=== PATIENT | female | born 1955 | race Caucasian/White ===

== ENCOUNTER 2022-05-18 13:19 | Outpatient (CLI) | payer MEDICARE, OTHER, SELFPAY | END 2022-05-18 13:20 | disposition home or self-care (01) | LOC: RAD 13:44 | PROVIDERS: PCP Family Medicine | DX: I48.91 Unspecified atrial fibrillation (principal); I95.9 Hypotension, unspecified; C54.1 Malignant neoplasm of endometrium | CPT/HCPCS: 93306 ==

== ENCOUNTER 2022-07-20 10:06 | Outpatient (CLI) | payer MEDICARE, OTHER, SELFPAY ==
--- NOTE | 2022-07-20 11:00 | CRLHL7_ITS ---
For Patients: As a result of the 21st Century Cures Act, medical imaging exams and procedure reports are released immediately into your electronic medical record. You may view this report before your referring provider. If you have questions, please contact your health care provider. Indication: Endometrial Carcinoma Technique: Postcontrast CT chest, abdomen and pelvis. 149 cc Isovue 370 intravenous contrast. Please note that all CT scans at this facility use dose modulation, iterative reconstruction, and/or weight-based dosing when appropriate to reduce radiation dose to as low as reasonably achievable. Comparison: 04/24/2022 Findings: In the chest, tiny pleural-based nodules in the right middle lobe, 4/43, are unchanged. No pleural effusion or infiltrate. Small hiatal hernia. Upper limits of normal mediastinal lymph nodes. Normal axillary lymph nodes. Visualized thyroid normal. No fracture. No pneumothorax or pulmonary edema. In the abdomen, increased soft tissue nodules within the mesenteric fat. For example, there is a 1.8 centimeter nodule within the right upper quadrant mesenteric fat, 2/138, previously measuring 1.2 cm. There are new nodules within the central mesenteric fat measuring up to 1.7 cm. Innumerable nodules are present within the central mesenteric fat. There is trace intra-abdominal ascites with congestion of the mesenteric venous structures. No abdominal wall hernia or bowel obstruction. Focal fat deposition within the liver adjacent to the falciform ligament. No splenomegaly. Adrenal glands normal. No hydronephrosis. Pancreas normal. Gallbladder absent. No biliary obstruction. Mildly prominent retroperitoneal lymph nodes are again noted which measure up to 1.3 cm. In the pelvis, stranding of the mesenteric fat noted. Bladder normal. Status post MICHAEL/BSO. No bowel obstruction. Mildly prominent pelvic sidewall lymph nodes are present. There is slight increased size of a left pelvic sidewall lymph node measuring 1.2 cm, 2/208, previously measuring 9 millimeters. No free air. No fracture. Degenerative changes. Impression: Progression of metastatic disease within the abdomen and pelvis with increased size and number of numerous lymph nodes throughout the mesenteric fat, retroperitoneum and pelvis. Increased size of soft tissue nodule in the right upper quadrant mesenteric fat. New mild ascites and congestion of mesenteric venous structures. Please note that all CT scans at this facility use dose modulation, iterative reconstruction, and/or weight-based dosing when appropriate to reduce radiation dose to as low as reasonably achievable. Dictated by Enrike Brown MD @ 07/21/2022 11:06:34 AM (Electronically Signed)
== END 2022-07-20 10:07 | disposition home or self-care (01) ==
LOC: CT 10:06
PROVIDERS: PCP Family Medicine; Visit Provider Nurse Practitioner Obstetrics & Gynecology
DX: C54.1 Malignant neoplasm of endometrium (principal); R59.9 Enlarged lymph nodes, unspecified
CPT/HCPCS: 71260; 74177; Q9967

== ENCOUNTER 2022-07-29 13:19 | Emergency (ER) | payer MEDICARE, OTHER, SELFPAY ==
[2022-07-29 13:33] VITALS: BP 112/79; PULSE 94; RESP 16; TEMP 35.9; O2SAT 96; BMI 47.6
[2022-07-29] MEDS: 0.9 % SODIUM CHLORIDE 1000 ml 1,000 ML IV (15:00)
[2022-07-29] MEDS: ONDANSETRON 2 MG/ML inj 4 MG IVP (15:01)
--- NOTE | 2022-07-29 15:04 | CRLHL7_ITS ---
For Patients: As a result of the Cures Act, medical imaging exams and procedure reports are released immediately into your electronic medical record. You may view this report before your referring provider. If you have questions, please contact your health care provider. Indication: NO BM FOR 5-6 DAYS. ILEUS? SBO? Technique: Abdomen 3 view. Comparison: None. Findings: No free air seen on upright imaging. Mild-moderate fecal retention throughout the colon. There is a nonobstructed bowel gas pattern. No acute osseous abnormality. Impression: Nonobstructed bowel gas pattern with mild-moderate fecal retention. Dictated by Spencer Hartley MD @ 07/29/2022 4:11:20 PM (Electronically Signed)
--- NOTE | 2022-07-29 15:30 | ED_ITS ---
HPI - General Adult General Chief complaint: Constipation <Enrike Gutierrez MD - Last Filed: 07/30/22 07:50> Stated complaint: Constipated <Enrike Gutierrez MD - Last Filed: 07/30/22 07:50> Time Seen by Provider: 07/29/22 13:32 <Enrike Gutierrez MD - Last Filed: 07/30/22 07:50> History of Present Illness HPI narrative: 67-year-old woman presenting to the emergency department with her supportive spouse with concern of constipation. Complicating history of endometrial cancer with metastases. As been receiving chemotherapy and experiences intermittent bouts of constipation and would not get excited about 2 or 3 days perhaps without a bowel movement. Would normally use prunes and Dulcolax or maybe senna and this would be successful. Has only had a small bowel movement 6 days ago which would be rather unusual. Admittedly had been only with intermittent stooling maybe a week preceding that as well. This bowel movement was small but soft. She is experiencing increasing abdominal cramping. Some dry heaves. Was seen in clinic yesterday diagnosed with constipation possible ileus. Did receive x-ray imaging at that time. CT imaging of the abdomen and pelvis done here on 07/20 unfortunately did show progression of metastatic disease. Congestion was noted of the vascular structures. Constipation is thought possibly related to chemotherapy or to being hypothyroid. She has not been taking opiates. Has not had any fever. No hematemesis. Tried a fleets enema last night and today without results as well as senna. She says over the last few days just simply can not maintain much fluid in. Can not take much more than 8 oz a day feeling too bloated/just can not bring herself to do it. She knew this might get her into trouble. Past Medical History 1. 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 History of pulmonary embolism, diagnosed October 2021 3. History of paroxysmal atrial fibrillation 4. Longstanding history of morbid obesity, BMI greater than 50 5. Osteoarthritis 6. Valgus deformity of knees 7. Hiatal hernia 8. Obstructive sleep apnea, on CPAP 9. Dermatographia some 10. History external hemorrhoids Past Surgical History 1. Hysteroscopy and D&C demonstrating serous carcinoma of the endometrium, [place] 2020 2. Diagnostic laparoscopy and evacuation of ascites only demonstrating diffuse carcinomatosis involving the peritoneum, omentum, sigmoid colon, small bowel. 3. Robotic assisted TLH, BSO, SANDRA, omentectomy, cystoscopy. Uterus with serous carcinoma of the endometrium, myometrial invasion 20%. Cervical involvement invasion without invasion into stroma. Uterine serosal involvement. Bilateral ovaries and fallopian tubes involved with serous carcinoma. Omentum with serous carcinoma. Right pelvic peritoneum biopsy with metastatic service carcinoma. Washing was positive. Optimal debulking. 4. Remote history of appendectomy 5. Status post bunionectomy 6. Status post cholecystectomy 7. Status post right total knee arthroplasty 8. Status post right rotator cuff repair Family History Father had thyroid cancer. Mother had congestive heart failure. Paternal uncle had liver cancer. Paternal uncle had bladder cancer. Paternal grandmother had atherosclerosis. Paternal aunt had endometrial cancer. Maternal cousin had breast cancer. Maternal cousin had breast cancer. Paternal cousin had leukemia, melanoma. Paternal cousin had colon cancer. Social History . Lives with . Retired. Former artist including sculpture, painting, costumes. Formally lived in [facility] for [address] Hdez is her primary care physician. Dr. Rao is her gynecologic oncologist. She is awaiting a 2nd opinion at [facility] in [place]. Designates her , Mark Anthony, as her power of block paver for health should that be required. Requests full resuscitation in the event of cardiopulmonary demise at this time. Former smoker. Half pack per day for 5 years. 2.5 pack-year history. Does not drink alcoholic beverages. Does not use any street or recreational drugs. <Enrike Gutierrez MD - Last Filed: 07/30/22 07:50> Related Data Home medications: Home Medications Medication Instructions Recorded Confirmed acetaminophen 500 mg capsule 500 mg PO Q6H PRN 07/29/22 07/29/22 albuterol sulfate 90 mcg/actuation 1 inh inhalation Q6H 07/29/22 07/29/22 aerosol inhaler apixaban 5 mg tablet (Eliquis) 5 mg PO BID 07/29/22 07/29/22 ascorbic acid-ascorbate ml PO 07/29/22 calcium-ascorbate sod 500 mg/15 mL oral liquid calcium carbonate 400 mg calcium 400 mg PO TID 07/29/22 07/29/22 (1,000 mg) chewable tablet cyclobenzaprine 10 mg tablet 10 mg PO HS 07/29/22 07/29/22 famotidine 20 mg tablet 20 mg PO BID 07/29/22 07/29/22 furosemide 20 mg tablet 20 mg PO DAILY 07/29/22 07/29/22 levothyroxine 50 mcg tablet 50 mcg PO DAILY 07/29/22 07/29/22 lorazepam 0.5 mg tablet (Ativan) 0.5 mg PO Q4H PRN 07/29/22 07/29/22 metoprolol tartrate 25 mg tablet 25 mg PO DAILY PRN 07/29/22 07/29/22 ondansetron HCl 8 mg tablet 8 mg PO TID PRN 07/29/22 07/29/22 prochlorperazine maleate 10 mg 10 mg PO Q6H PRN 07/29/22 07/29/22 tablet (Compazine) sennosides 8.6 mg tablet (Senokot) 8.6 mg PO BID 07/29/22 07/29/22 vitamin B complex PO 07/29/22 <Enrike Gutierrez MD - Last Filed: 07/30/22 07:50> Allergies/adverse reactions: Allergies Allergy/AdvReac Type Severity Reaction Status Date / Time nitrofurantoin Allergy Severe Verified 07/29/22 17:51 [From Macrobid] paclitaxel [From Taxol] Allergy Severe Hives Verified 07/29/22 17:51 wheat Allergy Unknown Verified 07/29/22 17:51 celecoxib Allergy Verified 07/29/22 17:51 ibuprofen Allergy Verified 07/29/22 17:51 Penicillins Allergy Verified 07/29/22 17:51 rofecoxib Allergy Verified 07/29/22 17:51 Sulfa (Sulfonamide Allergy Verified 07/29/22 17:51 Antibiotics) <Enrike Gutierrez MD - Last Filed: 07/30/22 07:50> Review of Systems Status of ROS: Reports: 10 or more systems reviewed and unremarkable except as noted in History and below <Enrike Gutierrez MD - Last Filed: 07/30/22 07:50> PFSH PFSH Social History: Social History Smoking Status: Never smoker Do you use any of these nicotine containing products: None Second hand tobacco smoke exposure: Yes How often do you have a drink containing alcohol: monthly or less How many standard drinks containing alcohol do you have on a typical day: 1 or 2 How often do you have six or more drinks on one occasion: Never AUDIT-C Alcohol total score: 1 Non-prescribed substance use: denies use service: No <Enrike Gutierrez MD - Last Filed: 07/30/22 07:50> Exam Narrative: Exam Narrative: Is pleasant. NAD. Introspective. Full head of hair but short. Oropharynx a little sticky. Is breathing easily. Lungs appear to be clear. Cardiovascular with elevated rate is distant. Abdomen is obese soft. Normoactive bowel sounds. She has moderate tenderness in the left mid abdomen. Probably area of most tenderness otherwise is seems to be some mild tenderness throughout the mid abdomen. She is not tympanitic. I can not appreciate a fluid wave. She gestures to her upper abdomen noting how bloated she has been feeling. Extremities with dependent edema. No inflammatory changes. Skin is warm dry. <Enrike Gutierrez MD - Last Filed: 07/30/22 07:50> Const: Vital Signs, click to edit/add: Vital Signs - 24 hr 07/29/22 13:33 07/29/22 15:45 Temperature 96.6 F L Pulse Rate [Pulse Oximeter] 94 91 Respiratory Rate 16 18 Blood Pressure [Ri ght Forearm] 112/79 116/76 Pulse Oximetry 96 94 Oxygen Delivery Me thod Room Air Room Air <Enrike Gutierrez MD - Last Filed: 07/30/22 07:50> Vital Signs, click to edit/add: Vital Signs - 24 hr 07/29/22 13:33 07/29/22 15:45 Temperature 96.6 F L Pulse Rate [Pulse Oximeter] 94 91 Respiratory Rate 16 18 Blood Pressure [Ri ght Forearm] 112/79 116/76 Pulse Oximetry 96 94 Oxygen Delivery Me thod Room Air Room Air <Aicha Valenzuela MD - Last Filed: 07/29/22 19:23> Documenting provider has reviewed patient's vital signs: yes <Enrike Gutierrez MD - Last Filed: 07/30/22 07:50> Course Course Hospital Course: Would seem that she does need some hydration. Per report certainly she is not keeping up on her own. IV established. Given Zofran. <Enrike Gutierrez MD - Last Filed: 07/30/22 07:50> Reevaluation(s) Reevaluation #1: Unchanged from prior. <Enrike Gutierrez MD - Last Filed: 07/30/22 07:50> Reevaluation #2: Reviewed CT findings with patient. It would seem that she starting to get some fluid from her cancer in her abdomen. We did discuss that this can cause anorexia, bloating, abdominal pain. It is described as mild amount in thus not likely to be benefited from any attempts at paracentesis. Note, we would not be doing a scheduled paracentesis anyways in the ER. She did have a small amount of stool production. She would like to go home. She has no evidence of obstruction and thus I think she can continue with working on constipation at home. She has an oncology appointment this Wednesday and have asked her to review the report with her oncologist. <Aicha Valenzuela MD - Last Filed: 07/29/22 19:23> Time: : <Aicha Valenzuela MD - Last Filed: 07/29/22 19:23> Vital Signs Vital signs: Initial Vital Signs Temperature 96.6 F L 07/29/22 13:33 Temperature Source Temporal Artery Scan 07/29/22 13:33 Pulse Rate 94 07/29/22 13:33 Pulse Rhythm 07/29/22 13:33 Pulse Strength 3+ Normal 07/29/22 13:33 Respiratory Rate 16 07/29/22 13:33 Blood Pressure 112/79 07/29/22 13:33 Blood Pressure Mean 90 07/29/22 13:33 Blood Pressure Position Sitting 07/29/22 13:33 Pulse Oximetry 96 07/29/22 13:33 Oxygen Delivery Method 07/29/22 13:33 Vital Signs Temperature 96.6 F L 07/29/22 13:33 Pulse Rate 94 07/29/22 13:33 Respiratory Rate 16 07/29/22 13:33 Blood Pressure 112/79 07/29/22 13:33 Pulse Oximetry 96 07/29/22 13:33 Oxygen Delivery Method 07/29/22 13:33 Temperature 96.6 F L 07/29/22 13:33 Pulse Rate 91 07/29/22 15:45 Respiratory Rate 18 07/29/22 15:45 Blood Pressure 116/76 07/29/22 15:45 Pulse Oximetry 94 07/29/22 15:45 Oxygen Delivery Method 07/29/22 15:45 <Enrike Gutierrez MD - Last Filed: 07/30/22 07:50> Initial Vital Signs Temperature 96.6 F L 07/29/22 13:33 Temperature Source Temporal Artery Scan 07/29/22 13:33 Pulse Rate 94 07/29/22 13:33 Pulse Rhythm 07/29/22 13:33 Pulse Strength 3+ Normal 07/29/22 13:33 Respiratory Rate 16 07/29/22 13:33 Blood Pressure 112/79 07/29/22 13:33 Blood Pressure Mean 90 07/29/22 13:33 Blood Pressure Position Sitting 07/29/22 13:33 Pulse Oximetry 96 07/29/22 13:33 Oxygen Delivery Method 07/29/22 13:33 Vital Signs Temperature 96.6 F L 07/29/22 13:33 Pulse Rate 94 07/29/22 13:33 Respiratory Rate 16 07/29/22 13:33 Blood Pressure 112/79 07/29/22 13:33 Pulse Oximetry 96 07/29/22 13:33 Oxygen Delivery Method 07/29/22 13:33 Temperature 96.6 F L 07/29/22 13:33 Pulse Rate 91 07/29/22 15:45 Respiratory Rate 18 07/29/22 15:45 Blood Pressure 116/76 07/29/22 15:45 Pulse Oximetry 94 07/29/22 15:45 Oxygen Delivery Method 07/29/22 15:45 <Aicha Valenzuela MD - Last Filed: 07/29/22 19:23> Medical Decision Making MDM Narrative Medical decision making narrative: Certainly from clinical picture with seem to be constipated. Abdominal x- ray reviewed by me looks to have some moderate stool particularly notable on the left side but not a great deal stool in the rectal vault. No air-fluid levels. I have however ordered modified pink lady enema --we do not have magnesium citrate. Also double dose MiraLax and Dulcolax orally. After further consideration, return for abdomen and pelvic CT imaging. I would have concerns regarding abdominal ascites possibly contributing. And further clarify constipation. There was mention of vascular congestion as well in the prior CT from July 20. <Enrike Gutierrez MD - Last Filed: 07/30/22 07:50> Lab Data Labs: Lab Results 07/29/22 07/29/22 07/29/22 Range/Units 16:55 16:55 16:55 WBC 4.78 (4.50-11.00) K/uL RBC 3.94 L (4.00-5.20) m/uL Hgb 12.9 (12.0-16.0) gm/dL Hct 38.8 (33.0-51.0) % MCV 99 (80-100) fL MCH 33 (26-34) pg MCHC 33 (32-36) gm/dL RDW Coeff of Tommy 18.6 H (11.5-15.5) % Plt Count 242 (140-440) K/uL Neut % (Auto) 76.0 H (42.0-72.0) % Lymph % (Auto) 11.5 L (20-44) % [place] % (Auto) 11.7 H (0.0-11.0) % Eos % (Auto) 0.4 (0.0-7.0) % Baso % (Auto) 0.2 (0.0-3.0) % Neut # (Auto) 3.60 (1.7-7.0) K/uL Lymph # (Auto) 0.50 L (0.90-2.90) K/uL [place] # (Auto) 0.60 (0.00-0.90) K/UL Eos # (Auto) 0.02 (0.00-0.50) K/uL Baso # (Auto) 0.01 (0.00-0.30) K/uL Abs Immat Gran (auto) 0.01 (0.00-0.30) K/uL INR 1.52 H (0.91-1.10) APTT 39 H (23-33) Seconds Sodium 130 L (135-149) mmol/L Potassium 4.1 (3.6-5.1) mmol/L Chloride 97 (96-114) mmol/L Carbon Dioxide 24 (20-32) mmol/L BUN 16 (7-30) mg/dL Creatinine 0.9 (0.5-1.5) mg/dL Estimated Creat Clear 51.11 Estimated GFR 70 ml/min Glucose 110 (60-115) mg/dL Calcium 8.8 (8.4-10.6) mg/dL Total Bilirubin 0.6 (0.1-1.5) mg/dL Direct Bilirubin 0.1 (0.0-0.5) mg/dL AST 30 (12-35) U/L ALT 22 (4-35) U/L Alkaline Phosphatase 71 (40-150) U/L Total Protein 7.2 (6.0-8.3) g/dL Albumin 3.9 (3.3-5.0) g/dL <Enrike Gutierrez MD - Last Filed: 07/30/22 07:50> Lab Results 07/29/22 07/29/22 07/29/22 Range/Units 16:55 16:55 16:55 WBC 4.78 (4.50-11.00) K/uL RBC 3.94 L (4.00-5.20) m/uL Hgb 12.9 (12.0-16.0) gm/dL Hct 38.8 (33.0-51.0) % MCV 99 (80-100) fL MCH 33 (26-34) pg MCHC 33 (32-36) gm/dL RDW Coeff of Tommy 18.6 H (11.5-15.5) % Plt Count 242 (140-440) K/uL Neut % (Auto) 76.0 H (42.0-72.0) % Lymph % (Auto) 11.5 L (20-44) % [place] % (Auto) 11.7 H (0.0-11.0) % Eos % (Auto) 0.4 (0.0-7.0) % Baso % (Auto) 0.2 (0.0-3.0) % Neut # (Auto) 3.60 (1.7-7.0) K/uL Lymph # (Auto) 0.50 L (0.90-2.90) K/uL [place] # (Auto) 0.60 (0.00-0.90) K/UL Eos # (Auto) 0.02 (0.00-0.50) K/uL Baso # (Auto) 0.01 (0.00-0.30) K/uL Abs Immat Gran (auto) 0.01 (0.00-0.30) K/uL INR 1.52 H (0.91-1.10) APTT 39 H (23-33) Seconds Sodium 130 L (135-149) mmol/L Potassium 4.1 (3.6-5.1) mmol/L Chloride 97 (96-114) mmol/L Carbon Dioxide 24 (20-32) mmol/L BUN 16 (7-30) mg/dL Creatinine 0.9 (0.5-1.5) mg/dL Estimated Creat Clear 51.11 Estimated GFR 70 ml/min Glucose 110 (60-115) mg/dL Calcium 8.8 (8.4-10.6) mg/dL Total Bilirubin 0.6 (0.1-1.5) mg/dL Direct Bilirubin 0.1 (0.0-0.5) mg/dL AST 30 (12-35) U/L ALT 22 (4-35) U/L Alkaline Phosphatase 71 (40-150) U/L Total Protein 7.2 (6.0-8.3) g/dL Albumin 3.9 (3.3-5.0) g/dL <Aicha Valenzuela MD - Last Filed: 07/29/22 19:23> Imaging Data CT scan - abdomen: Attestation: I have reviewed the pertinent imaging results. <Aicha Rain MD - Last Filed: 07/29/22 19:23> Radiologist's impression: Patient: CLAU BARBER Facility:?[facility] Patient ID:?[id number] Site Patient ID:?[id number]. Site :?[id number] Study:?CT Abdomen/Pelvis W/ 145CC [id number]-114-5/21/2022 6:25:50 PM Ordering Physician:?Matt Calvert Final Report: INDICATION: Abdominal pain and bloating. Known endometrial cancer. TECHNIQUE: CT abdomen and pelvis acquired with 145 cc Isovue 370 IV contrast. COMPARISON: July 20, 2022. FINDINGS: Lower chest: Scattered atelectasis. Small hiatal hernia. Please refer to CT chest 07/20/2022. Liver: Unchanged. Gallbladder and bile ducts: Cholecystectomy. Pancreas: Unchanged. Spleen: Unchanged. Adrenal glands: Unchanged. Kidneys: Unchanged. GI tract: Mild reactive bowel changes. No bowel obstruction. Vasculature: Abdominal aorta is normal in caliber. Mesenteric arteries are patent. Lymph nodes: Unchanged lymphadenopathy. Peritoneum/Abdominal Wall: Redemonstration of known peritoneal disease/carcinomatosis, including a 1 8 centimeter right quadrant mesenteric nodule (series 3, image 36). Interval development small free intraperitoneal fluid. Similar mesenteric edema. No free air. Pelvis: Status post MICHAEL/BSO. Bones: Degenerative changes. IMPRESSION: Interval development of small volume free fluid. Otherwise, no acute intra- abdominal/pelvic abnormality. Re-demonstration of known mesenteric and peritoneal lymphadenopathy/disease, better demonstrated and described on recent staging exam performed July 20 2022. Please note that all CT scans at this facility use dose modulation, iterative reconstruction, and/or weight-based dosing when appropriate to reduce radiation dose to as low as reasonably achievable. Dictated by Lucas Burks MD @ 07/29/2022 7:09:51 PM <Aicha Valenzuela MD - Last Filed: 07/29/22 19:23> Abdominal x-ray: Attestation: I have reviewed the pertinent imaging results. <Aicha Valenzuela MD - Last Filed: 07/29/22 19:23> Radiologist's impression: Patient: CLAU BARBER Facility:?[facility] Patient ID:?[id number] Site Patient ID:?[id number]. Site :?[id number] Study:?XRay Abdomen FLAT/UPRIGHT-07/29/2022 3:34:21 PM Ordering Physician:Zachary Calvert Final Report: Indication: NO BM FOR 5-6 DAYS. ILEUS? SBO? Technique: Abdomen 3 view. Comparison: None. Findings: No free air seen on upright imaging. Mild-moderate fecal retention throughout the colon. There is a nonobstructed bowel gas pattern. No acute osseous abnormality. Impression: Nonobstructed bowel gas pattern with mild-moderate fecal retention. Dictated by Spencer Hartley MD @ 07/29/2022 4:11:20 PM (Electronic Signature) <Aicha Valenzuela MD - Last Filed: 07/29/22 19:23> Discharge Plan Discharge Clinical Impression: Hyponatremia, Constipation, Abdominal bloating <Enrike Gutierrez MD - Last Filed: 07/30/22 07:50> Patient Disposition: Home w/ Parent or Adult <Enrike Gutierrez MD - Last Filed: 07/30/22 07:50> Condition: Stable <Enrike Gutierrez MD - Last Filed: 07/30/22 07:50> Additional Instructions: If you get a sense that stool would be particularly hard, would continue with enemas repeating in an hour if no significant result. Alternative to standard Fleet's are also mineral oil enemas. If do not have any significant bowel movement today, I would continue with MiraLax equivalent dosing with 3 capfuls every morning each in 6-8 oz of liquid. Then going forward adjusting to stool consistency. Can drink mineral oil as well to help with bowel clean out. Take docusate sodium twice daily. I would follow-up for recheck of labs in a week Return for marked increase in pain, fever, repeated vomiting. unfortunately magnesium citrate is not currently available. <Enrike Gutierrez MD - Last Filed: 07/30/22 07:50> Prescriptions: No Action acetaminophen 500 mg capsule 500 mg PO Q6H PRN albuterol sulfate 90 mcg/actuation HFA aerosol inhaler 1 inh inhalation Q6H calcium carbonate 400 mg calcium (1,000 mg) tablet,chewable 400 mg PO TID cyclobenzaprine 10 mg tablet 10 mg PO HS Eliquis 5 mg tablet 5 mg PO BID famotidine 20 mg tablet 20 mg PO BID furosemide 20 mg tablet 20 mg PO DAILY Hold Instructions: Doctor's Order levothyroxine 50 mcg tablet 50 mcg PO DAILY lorazepam [Ativan] 0.5 mg tablet 0.5 mg PO Q4H PRN metoprolol tartrate 25 mg tablet 25 mg PO DAILY PRN Label Comments: for tachycardia ondansetron HCl 8 mg tablet 8 mg PO TID PRN prochlorperazine maleate [Compazine] 10 mg tablet 10 mg PO Q6H PRN sennosides [Senokot] 8.6 mg tablet 8.6 mg PO BID vit c-ascorbate Ca-ascorb sod 500 mg/15 mL liquid PO vitamin B complex [B Complex-Vitamin B12] PO <Enrike Gutierrez MD - Last Filed: 07/30/22 07:50> Follow Up/Referrals: Sarah Hdez MD [Primary Care Provider] - <Enrike Gutierrez MD - Last Filed: 07/30/22 07:50> Stand Alone Forms: MyHealth Info Instructions <Enrike Gutierrez MD - Last Filed: 07/30/22 07:50>
--- NOTE | 2022-07-29 15:33 | ED.NURSE ---
Patient back from radiology.
[2022-07-29 15:45] VITALS: BP 116/76; PULSE 91; RESP 18; O2SAT 94
[2022-07-29] MEDS: GI COCKTAIL (VISC LIDO/ANTACID) 30 ML PO (16:02)
--- NOTE | 2022-07-29 16:32 | CRLHL7_ITS ---
For Patients: As a result of the Century Cures Act, medical imaging exams and procedure reports are released immediately into your electronic medical record. You may view this report before your referring provider. If you have questions, please contact your health care provider. INDICATION: Abdominal pain and bloating. Known endometrial cancer. TECHNIQUE: CT abdomen and pelvis acquired with 145 cc Isovue 370 IV contrast. COMPARISON: July 20, 2022. FINDINGS: Lower chest: Scattered atelectasis. Small hiatal hernia. Please refer to CT chest 07/20/2022. Liver: Unchanged. Gallbladder and bile ducts: Cholecystectomy. Pancreas: Unchanged. Spleen: Unchanged. Adrenal glands: Unchanged. Kidneys: Unchanged. GI tract: Mild reactive bowel changes. No bowel obstruction. Vasculature: Abdominal aorta is normal in caliber. Mesenteric arteries are patent. Lymph nodes: Unchanged lymphadenopathy. Peritoneum/Abdominal Wall: Redemonstration of known peritoneal disease/carcinomatosis, including a 1 8 centimeter right quadrant mesenteric nodule (series 3, image 36). Interval development small free intraperitoneal fluid. Similar mesenteric edema. No free air. Pelvis: Status post MICHAEL/BSO. Bones: Degenerative changes. IMPRESSION: Interval development of small volume free fluid. Otherwise, no acute intra-abdominal/pelvic abnormality. Re-demonstration of known mesenteric and peritoneal lymphadenopathy/disease, better demonstrated and described on recent staging exam performed July 20 2022. Please note that all CT scans at this facility use dose modulation, iterative reconstruction, and/or weight-based dosing when appropriate to reduce radiation dose to as low as reasonably achievable. Dictated by Lucas Burks MD @ 07/29/2022 7:09:51 PM (Electronically Signed)
[2022-07-29 17:13] LABS: Basophils Absolute Auto 0.01 K/uL (0.00-0.30); Basophils Percent Auto 0.2 % (0.0-3.0); Eosinophils Absolute Auto 0.02 K/uL (0.00-0.50); Eosinophils Percent Auto 0.4 % (0.0-7.0); Hematocrit 38.8 % (33.0-51.0); Hemoglobin* 12.9 gm/dL (12.0-16.0); Immature Granulocytes Abs Auto 0.01 K/uL (0.00-0.30); Lymphocytes Percent Auto 11.5 % (20-44); Mean Corpuscular HGB Conc 33 gm/dL (32-36); Mean Corpuscular Hemoglobin 33 pg (26-34); Mean Corpuscular Volume 99 fL (80-100); Monocytes Percent Auto 11.7 % (0.0-11.0); Platelet Count* 242 K/uL (140-440); RDW Coefficient of Variation % 18.6 % (11.5-15.5); Red Blood Count 3.94 m/uL (4.00-5.20); White Blood Count* 4.78 K/uL (4.50-11.00)
[2022-07-29 17:15] LABS: Slide Review Reflex No
[2022-07-29 17:36] LABS: INR 1.52 (0.91-1.10); Prothrombin Time 18.7 Seconds
[2022-07-29 17:37] LABS: Partial Thromboplastin Time* 39 Seconds (23-33)
[2022-07-29 17:40] LABS: Albumin* 3.9 g/dL (3.3-5.0)
[2022-07-29 17:41] LABS: Chloride* 97 mmol/L (96-114); Potassium* 4.1 mmol/L (3.6-5.1); Sodium* 130 mmol/L (135-149)
[2022-07-29 17:43] LABS: Aspartate Amino Transferase* 30 U/L (12-35); Bilirubin Direct* 0.1 mg/dL (0.0-0.5); Bilirubin Total* 0.6 mg/dL (0.1-1.5); Carbon Dioxide* 24 mmol/L (20-32); Creatinine* 0.9 mg/dL (0.5-1.5); Est. Creatinine Clearance* 51.11; Estimated Glomerular Filt Rate 70 ml/min; Total Protein* 7.2 g/dL (6.0-8.3)
[2022-07-29 17:44] LABS: Alanine Aminotransferase* 22 U/L (4-35); Alkaline Phosphatase* 71 U/L (40-150); Blood Urea Nitrogen* 16 mg/dL (7-30); Calcium* 8.8 mg/dL (8.4-10.6); Glucose* 110 mg/dL (60-115)
[2022-07-29] MEDS: DOC/MIN OIL/MAG CIT/SOD PHOS 376 ML ENEMA PR (18:35)
[2022-07-29] MEDS: polyethylene glycoL 3350 17 GM PACK 34 GM PO (19:01)
[2022-07-29] MEDS: bisacodyL 5 MG TABLET DR 10 MG PO (19:01)
== END 2022-07-29 19:31 | disposition home or self-care (01) ==
PROVIDERS: Emergency Provider Family Medicine; PCP Family Medicine
DX: E87.1 Hypo-osmolality and hyponatremia (principal); E86.0 Dehydration; K59.00 Constipation, unspecified; R14.0 Abdominal distension (gaseous); C55 Malignant neoplasm of uterus, part unspecified; Z92.21 Personal history of antineoplastic chemotherapy
CPT/HCPCS: 36415; 74019; 74177; 80048; 80076; 85025; 85610; 85730; 96361; 96374; 99284; A9270; J2405; J7030; Q9967

== ENCOUNTER 2022-08-10 14:13 | Outpatient (CLI) | payer MEDICARE, OTHER, SELFPAY ==
--- NOTE | 2022-08-10 15:00 | CRLHL7_ITS ---
For Patients: As a result of the Century Cures Act, medical imaging exams and procedure reports are released immediately into your electronic medical record. You may view this report before your referring provider. If you have questions, please contact your health care provider. INDICATION: Abdominal pain and bloating. TECHNIQUE: CT abdomen and pelvis acquired with 145 cc Isovue 370 IV contrast. COMPARISON: None. FINDINGS: Lower chest: Small left side pleural effusion. Liver: Unremarkable. Normal in size and attenuation. No suspicious masses. Gallbladder and bile ducts: Gallbladder is absent. No biliary dilatation. Pancreas: Unremarkable. No mass or inflammation. Spleen: Unremarkable. Normal in size. No masses. Adrenal glands: Unremarkable. No nodules. Kidneys: Unremarkable. No suspicious masses, stones, or hydronephrosis. GI tract: Unremarkable. Normal in caliber. No sign of mass or inflammation. Vasculature: Abdominal aorta is normal in caliber. Mesenteric arteries are patent. Lymph nodes: No lymphadenopathy. Peritoneum/Abdominal Wall: Interval increase in size of a moderate to large amount of ascites with some areas of loculation. Soft tissue nodularity in the omentum again demonstrated. Pelvis: Unremarkable. Bones: Unremarkable for age. IMPRESSION: 1. New small left-sided pleural effusion. 2. Redemonstration of peritoneal carcinomatosis with an interval increase in loculated ascites. 3. No other new abnormality or other significant change. Please note that all CT scans at this facility use dose modulation, iterative reconstruction, and/or weight-based dosing when appropriate to reduce radiation dose to as low as reasonably achievable. Dictated by Homero Her MD @ 08/10/2022 5:11:06 PM (Electronically Signed)
== END 2022-08-10 14:14 | disposition home or self-care (01) ==
PROVIDERS: PCP Family Medicine; Visit Provider Nurse Practitioner Obstetrics & Gynecology
DX: C54.1 Malignant neoplasm of endometrium (principal); J90 Pleural effusion, not elsewhere classified; R10.9 Unspecified abdominal pain
CPT/HCPCS: 74177; Q9967

== ENCOUNTER 2022-10-26 10:35 | Outpatient (CLI) | payer MEDICARE, OTHER, SELFPAY ==
--- NOTE | 2022-10-26 11:00 | CRLHL7_ITS ---
For Patients: As a result of the Century Cures Act, medical imaging exams and procedure reports are released immediately into your electronic medical record. You may view this report before your referring provider. If you have questions, please contact your health care provider. Indication: ENDOMETRIAL CARCINOMA , MALIGNANT ASCITES Technique: Postcontrast CT chest, abdomen and pelvis. Oral water. 149 cc Isovue 370 intravenous contrast. Please note that all CT scans at this facility use dose modulation, iterative reconstruction, and/or weight-based dosing when appropriate to reduce radiation dose to as low as reasonably achievable. Comparison: 08/10/2022, 07/29/2022 Findings: In the chest, thoracic inlet adenopathy on the left measures up to 1.8 cm. Small left pleural effusion. Adenopathy a anterior to the right pericardium. Small hiatal hernia. Gastroesophageal adenopathy also present with multiple lymph nodes measuring up to 2.4 cm. Mildly prominent lymph nodes in the central mediastinum. No axillary adenopathy. There are a few scattered small ill-defined pulmonary nodules on the right measuring 5 millimeters or less. In the abdomen, there are hypodense masses within the posterior segment of the right hepatic lobe measuring up to 2.4 cm. Lobular hypodense masses are also present within the left hepatic lobe measuring up to 3.6 cm. Increased retroperitoneal limited tearing adenopathy with innumerable lymph nodes measuring up to 2 centimeters. Increased size of a soft tissue nodule within the right abdominal wall subcutaneous fat measuring 1.9 cm. Other subcutaneous nodules are present along the left abdominal wall which have also increased in size. Peritoneal implants have also increased in size and number since the prior exam. Vascular congestion has increased in conspicuity. Loculated ascites in the mid abdomen noted. No bowel obstruction. No hydronephrosis. Adrenal glands normal. No splenomegaly. No pancreatic mass. No gastric outlet obstruction. In the pelvis, increased size of low-density left pelvic sidewall lymph nodes, now measuring up to 2.3 cm. Mesenteric implants/adenopathy have also increased in size and number. No free air. No bladder stone. Loculated ascites above the bladder dome. Mild ascites elsewhere. Impression: Progression of metastatic disease within the chest, abdomen and pelvis including increased adenopathy and peritoneal/soft tissue implants along with development of intrahepatic metastatic masses, increased mesenteric fat vascular congestion and continued loculation of small volume ascitic fluid. Please note that all CT scans at this facility use dose modulation, iterative reconstruction, and/or weight-based dosing when appropriate to reduce radiation dose to as low as reasonably achievable. Dictated by Enrike Brown MD @ 10/27/2022 9:17:49 AM (Electronically Signed)
== END 2022-10-26 10:36 | disposition home or self-care (01) ==
LOC: CT 10:36
PROVIDERS: PCP Family Medicine; Visit Provider Internal Medicine
DX: C54.1 Malignant neoplasm of endometrium (principal); C78.6 Secondary malignant neoplasm of retroperitoneum and peritoneum; R18.0 Malignant ascites
CPT/HCPCS: 71260; 74177; Q9967

== ENCOUNTER 2022-10-26 11:26 | Outpatient (RCR) | payer MEDICARE, OTHER, SELFPAY ==
[2022-09-22 13:06] VITALS: BP 101/68; PULSE 96; RESP 18; TEMP 36.6; O2SAT 96
[2022-09-22 13:27] VITALS: RESP 18; TEMP 36.7; O2SAT 96
[2022-09-22 14:17] VITALS: BP 103/68; PULSE 84; RESP 16; TEMP 36.1; O2SAT 96
[2022-09-22 15:08] VITALS: BP 113/73; PULSE 92; RESP 18; TEMP 36.6; O2SAT 96
[2022-10-26] MEDS: SODIUM CHLORIDE 0.9 % (FLUSH) 10 ML SYRINGE IVF (11:57)
[2022-10-26] MEDS: HEPARIN 500 UNIT/5 ML SYRINGE IVF (11:57)
== END 2023-02-02 23:59 | disposition home or self-care (01) ==
LOC: CCIC 11:26
PROVIDERS: PCP Family Medicine; Referring Provider Family Medicine; Visit Provider Clinical Nurse Specialist
DX: C54.1 Malignant neoplasm of endometrium (principal); C78.6 Secondary malignant neoplasm of retroperitoneum and peritoneum
CPT/HCPCS: 36415; 36430; 36591; 86850; 86900; 86901; 86922; 99211; J1642; P9016

== ENCOUNTER 2023-01-09 07:40 | Outpatient (CLI) | payer MEDICARE, OTHER, SELFPAY | END 2023-01-09 07:41 | disposition home or self-care (01) | LOC: AMB 01-18 00:35 | PROVIDERS: PCP Family Medicine; Visit Provider Internal Medicine | DX: R53.1 Weakness (principal) | CPT/HCPCS: A0998 ==

== ENCOUNTER 2023-01-09 17:39 | Outpatient (CLI) | payer MEDICARE, OTHER, SELFPAY | END 2023-01-09 17:40 | disposition home or self-care (01) | LOC: AMB 01-15 07:09 | PROVIDERS: PCP Family Medicine; Visit Provider Emergency Medicine | DX: R53.1 Weakness (principal) ==